=== PATIENT | female | born 1985 | race Caucasian/White ===

== ENCOUNTER 2023-06-17 02:45 | Inpatient (IN) | payer BC ==
[~2023-06-17] VITALS: Ht 175.3 cm; Wt 77.1 kg
[2023-06-17] MEDS: LACTATED RINGERS 1,000 ML IV SCH ×4 (03:10→15:46)
[2023-06-17] MEDS ORDERED: OXYTOCIN 20 UNITS in LACTATED RINGERS 1,000 ML IV SCH ×2 (03:25→18:45)
[2023-06-17] MEDS ORDERED: MORPHINE SULFATE 10 MG/ML VIAL IVP PRN (03:25)
[2023-06-17] MEDS ORDERED: METHYLERGONOVINE 0.2 MG/ML AMP IM PRN ×3 (03:25→20:25)
[2023-06-17] MEDS ORDERED: ONDANSETRON 4 MG/2 ML VIAL IVP PRN ×2 (03:25→18:45)
[2023-06-17] MEDS ORDERED: CARBOPROST 250 MCG/ML AMP IM PRN (03:25)
[2023-06-17 03:39] VITALS: O2SAT 98
[2023-06-17] MEDS ORDERED: MORPHINE SULFATE 10 MG/ML VIAL ONE (03:39)
[2023-06-17] MEDS ORDERED: ONDANSETRON 4 MG TAB ONE (03:41)
[2023-06-17] MEDS ORDERED: ONDANSETRON 4 MG/2 ML VIAL ONE (03:42)
[2023-06-17 03:44] LABS: BASOPHILS % (AUTO) 0.3 % (0.0-2.0); HEMATOCRIT 36.5 % (36-48); HEMOGLOBIN 12.8 g/dL (12.0-16.0); LYMPHOCYTES # (AUTO) 0.9 K/uL (2.5-16.5); LYMPHOCYTES % (AUTO) 6.1 % (20.5-51.1); MEAN CORPUSCULAR HEMOGLOBIN 35 pg (27-31); MEAN CORPUSCULAR HGB CONC 35 g/dL (33-37); MEAN CORPUSCULAR VOLUME 98.5 fL (80-94); MONOCYTES # (AUTO) 0.7 K/uL (0.8-1.0); MONOCYTES % (AUTO) 5.1 % (1.7-9.3); NEUTROPHILS # (AUTO) 12.4 K/uL (1.8-7.7); NEUTROPHILS % (AUTO) 88.5 % (42.2-75.2); PLATELET COUNT (AUTO) 198 K/uL (140-450); RED BLOOD CELL COUNT(AUTO) 3.71 MIL/uL (4.20-5.40); RED CELL DISTRIBUTION WIDTH 12.9 % (11.6-13.7); WHITE BLOOD COUNT (AUTO) 14.1 K/uL (4.8-10.8)
[2023-06-17 03:52] LABS: APPEARANCE,URINE CLEAR (CLEAR); BILIRUBIN,URINE NEGATIVE (NEGATIVE); BLOOD, URINE TRACE-I (NEGATIVE); COLOR,URINE YELLOW (YELLOW); LEUKOCYTE ESTERASE ,URINE NEGATIVE (NEGATIVE); NITRITE, URINE NEGATIVE (NEGATIVE); PROTEIN,URINE NEGATIVE (NEGATIVE); UGLUCOSE NEGATIVE (NEGATIVE); UROBILINOGEN,URINE 0.2 EU/dL (0.2 - 1)
[2023-06-17 03:57] LABS: BACTERIA,URINE 10-30 (MOD) /HPF (None Seen); MUCUS,URINE 1+ /LPF (None Seen); RBC,URINE 0-5 /HPF (0-5); SQUAMOUS EPITHELIAL CELL,UR 0-3 (FEW) /LPF (0-3 (FEW)); WBC,URINE 0-5 /HPF (0-5)
[2023-06-17 04:01] LABS: INR 0.86 (0.8-1.2); PARTIAL THROMBOPLASTIN TIME 25.2 secs (22-35.6); PROTHROMBIN TIME 9.1 secs (10.8-13.4)
[2023-06-17 04:03] LABS: ALBUMIN 2.4 g/dL (3.4-5.0); ANION GAP 8.6 (8-16); CALCIUM 8.3 mg/dL (8.5-10.1); CARBON DIOXIDE 26.1 mmol/L (21-32); CREATININE 0.8 mg/dL (0.6-1.3); POTASSIUM 3.7 mmol/L (3.5-5.1); TOTAL BILIRUBIN 0.3 mg/dL (0.0-1.0)
[2023-06-17] MEDS ORDERED: PNV91TAB8 PO (04:12)
[2023-06-17 04:14] VITALS: BP 117/66; PULSE 104; RESP 18; TEMP 97.8
[2023-06-17] MEDS ORDERED: ROPIVACAINE 0.2%/NS PREMIX 200 ML EPI ONE (04:56)
[2023-06-17 05:52] VITALS: BP 91/50; PULSE 83; RESP 18
[2023-06-17] MEDS ORDERED: OXYTOCIN 20 UNITS/LR PREMIX 1,000 ML IV ONE (06:52)
[2023-06-17] MEDS ORDERED: GENTAMICIN PER PHARMACY MC PRN (11:40)
[2023-06-17] MEDS ORDERED: AMPICILLIN 2,000 MG in NACL 0.9% 100 ML IV ONE (12:00)
[2023-06-17] MEDS ORDERED: AMPICILLIN 2,000 MG VIAL ONE (12:08)
[2023-06-17] MEDS ORDERED: GENTAMICIN 100 MG in DEXTROSE 5% 100 ML IV SCH (13:00)
[2023-06-17] MEDS ORDERED: AMPICILLIN 1,000 MG in NACL 0.9% 50 ML IV SCH (16:00)
[2023-06-17] MEDS ORDERED: AMPICILLIN 1,000 MG VIAL ONE (16:03)
[2023-06-17] MEDS ORDERED: MORPHINE SULFATE 5 MG/ML VIAL IVP PRN (18:45)
[2023-06-17] MEDS ORDERED: LACTATED RINGERS 1,000 ML IV SCH (18:45)
[2023-06-17] MEDS ORDERED: METHYLERGONOVINE 0.2 MG TAB PO PRN ×2 (20:25→22:15)
[2023-06-17] MEDS ORDERED: BENZOCAINE/MENTHOL 20%-0.5% 60 GM CAN TP PRN ×3 (20:25→22:15)
[2023-06-17] MEDS ORDERED: OXYTOCIN 10 UNITS/ML VIAL IM PRN ×3 (20:25→22:15)
[2023-06-17] MEDS ORDERED: MEASLES, MUMPS, AND RUBELLA 1 VIAL SQVAC ONE (20:25)
[2023-06-17] MEDS ORDERED: IBUPROFEN 800 MG TAB PO PRN ×2 (20:25→22:15)
[2023-06-17] MEDS ORDERED: DOCUSATE SODIUM 100 MG GELCAP PO PRN (22:15)
[2023-06-17] MEDS ORDERED: IBUPROFEN 600 MG TAB PO PRN (22:15)
[2023-06-17] MEDS ORDERED: HYDROcodone/APAP 5/325 MG 1 TAB TAB PO PRN ×2 (22:15)
[2023-06-17] MEDS ORDERED: SIMETHICONE 80 MG TAB.CHEW PO PRN (22:15)
[2023-06-17] MEDS ORDERED: bisacodyL 5 MG TABEC PO PRN (22:15)
[2023-06-17] MEDS ORDERED: IBUPROFEN 400 MG TAB PO PRN (23:00)
[2023-06-18] MEDS ORDERED: MEASLES, MUMPS, AND RUBELLA 1 VIAL SQVAC ONE (08:45)
[2023-06-18 09:22] LABS: HEMATOCRIT 32.4 % (36-48); HEMOGLOBIN 11.2 g/dL (12.0-16.0)
[2023-06-18] MEDS: IBUPROFEN 800 MG TAB PO PRN ×2 (10:25→16:25)
== END 2023-06-19 12:40 | disposition home or self-care (01) | DRG 807 ==
LOC: MLD 02:45 → MFCC 21:00
PROVIDERS: ADMIT Obstetrics & Gynecology; ATTEND Obstetrics & Gynecology
PROC: 10E0XZZ Delivery of Products of Conception, External Approach (ICD-10-PCS; principal; 2023-06-17)
PROC: 3E0R3BZ Introduction of Anesthetic Agent into Spinal Canal, Percutaneous Approach (ICD-10-PCS; 2023-06-17)
PROC: 00HU33Z Insertion of Infusion Device into Spinal Canal, Percutaneous Approach (ICD-10-PCS; 2023-06-17)
DX: O71.89 Other specified obstetric trauma (principal); Z37.0 Single live birth; Z3A.39 39 weeks gestation of pregnancy; Z20.822 Contact with and (suspected) exposure to COVID-19
CPT/HCPCS: 36415; 51702; 59409; 80053; 81001; 85018; 85025; 85610; 85730; 86592; 86762; 86886; 86900; 86901; 87086; J0290; J1580; J2270; J2405; J2590; J2795; J7060; J7120; Q0162